=== PATIENT | female | born 1950 | race Caucasian/White ===

== ENCOUNTER 2016-07-22 11:36 | Day surgery (SDC) | payer MEDICARE, OTHER ==
[~2016-07-22] VITALS: Ht 157.5 cm; Wt 63.5 kg
[~2016-07-22 11:36] MED LIST: 0.9% Sodium Chloride 1,000 ML IV PRN; AMLO5TAB2 PO; ASPI-973 PO; ATOR80TA PO; CALC0.257 PO; PRD5T PO; SULF1TAB34 PO; Sodium Chloride LOK Flush 10 mL Syringe IV PRN; TACR0.5C5 PO; fentaNYL-PF 50 mCg/mL 2 mL Inj IVPUSH PRN
[2016-07-22 12:15] VITALS: BP 158/72; PULSE 77; RESP 16; O2SAT 98
[2016-07-22] MEDS ORDERED: INSU100I18 SUBQ (12:44)
[2016-07-22] MEDS ORDERED: LEVO88TA28 PO (12:44)
[2016-07-22] MEDS ORDERED: CARV12.5 PO (12:44)
[2016-07-22] MEDS ORDERED: MTC5T PO (12:44)
[2016-07-22] MEDS ORDERED: INSU100I13 SUBQ (12:44)
[2016-07-22] MEDS ORDERED: FURO-129 PO (12:44)
[2016-07-22 14:08] VITALS: BP 146/68; PULSE 73; RESP 16; O2SAT 95
[2016-07-22 14:18] VITALS: BP 164/83; PULSE 76; RESP 16; O2SAT 95
--- NOTE | 2016-07-22 14:52 | PCM.ENDCOL ---
Colonoscopy Physician Gordon Forbes MD Pre Procedure Diagnosis: Screening Post Procedure Dx & Findings: Polyp hemorrhoids colitis diverticuli Procedure Colonoscopy PROCEDURE IN DETAIL: Prep poor Withdrawal time 11 minutes After unremarkable rectal examination the Olympus video colonoscope was inserted patient's anal canal and was advanced to cecum. Landmarks were identified including the ileocecal valve and appendiceal orifice. Scope was withdrawn systematically. Visualized colonic mucosa showed healthy shiny mucosa with normal healthy-appearing vasculature. In the cecum, there was a 1 mm polyp was removed completely using cold forceps. In the transverse colon, there was a polyp 1 cm x 3 mm which was removed by cold snare. 2 hemostatic clips deployed. In the sigmoid colon there were both diverticuli medium-sized. In the distal rectum, there was evidence of redness edema consistent with mild colitis. Biopsies obtained. In the rectum retroflexion was done which showed hemorrhoids. Anal canal was inspected carefully on the way out and hemorrhoids noted. Impression Polyps 2 status post complete removal Hemorrhoids Poor prep Diverticuli Recommendation Repeat colonoscopy 1 year with a 2 day prep Diverticular diet Presedation Assessment Risks and Benefits Informed consent was obtained from the patient after all risks and benefits including but not limited to drug reaction, infection, pain, bleeding, perforation, as well as alternatives were discussed. Patient monitoring Continuous pulse oximetry, cardiac monitoring, blood pressure monitoring, IV access, and oxygen at 2L per nasal cannula. Periprocedural Fentanyl: Fentanyl 100mcg Incrementally Midazolam: Midazolam 4mg Incrementally Complications There were no periprocedural complications identified. Post Procedure Plan Post Procedure Recommendations 1. Restrict activities today. 2. Resume normal activities in the morning. 3. Resume medications. 4. Patient informed of normal post procedure side effects as bloating, drowsiness, blood streaking in the stool. 5. average risk CRCS. If colon polyps come back as: -Hyperplastic- can repeat colonoscopy in 10 years -Tubular adenoma- repeat colonoscopy in 5 years -Tubulovillous/villous adenoma- repeat colonoscopy in 3 years -If any dysplasia- return to clinic as soon as possible 6. Please don't hesitate to call me with any questions. Gordon Forbes MD Jul 22, 2016 14:52
--- NOTE | 2016-07-24 14:21 | PATH ---
SURGICAL PATHOLOGY Attending Physician:Gordon Forbes M.D. CASE STATUS: Signed Out PATIENT NAME: EMBER MADDEN PID: [id number] : 1950 DATE COLLECTED:07/22/2016 00:00 SPECIMEN: 1: Colon, Biopsy 2: Colon, Biopsy 3: Colon, Biopsy CLINICAL HISTORY: 1). CECAL POLYP X1 2). TRANSVERSE POLYP 3). DISTAL COLITIS BIOPSY FINAL DIAGNOSIS: 1.CECAL POLYP: TUBULAR ADENOMA. 2.TRANSVERSE POLYP: SESSILE SERRATED ADENOMA. 3.DISTAL COLITIS BIOPSY: COLONIC MUCOSA WITH MILD REACTIVE CHANGES. NEGATIVE FOR INFLAMMATION, DYSPLASIA AND MALIGNANCY. ICD10 CODE D12.0 D12.3 GROSS DESCRIPTION: The specimen is received in three formalin filled containers labeled with the patient's name. 1). The specimen is sublabeled "cecal polyp and consists of a 0.2 x 0.2 x 0.2 CM portion of tissue which is entirely submitted in cassette 1A. 2). The specimen is sublabeled "transverse polyp" and consists of a 0.6 x 0.4 x 0.3 CM portion of tissue which is entirely submitted in cassette 2A. 3). The specimen is sublabeled "distal colitis" and consists of a 0.3 x 0.2 x 0.2 CM portion of tissue which is entirely submitted in cassette 3A. 07/23/2016 DAC MICRO DESCRIPTION: See diagnosis. ICD-9 CODES: CPT CODES: 1: 49343 2: 69256 3: 19387 Electronically Signed Out Kay Patricio MD [facility] Pathology [facility] [place] [address] Technical component performed at [facility], [facility] [address], [place], [address]
== END 2016-07-22 23:59 | disposition home or self-care (01) ==
LOC: END 11:36
PROVIDERS: ATTEND Internal Medicine
DX: Z12.11 Encounter for screening for malignant neoplasm of colon (principal); D12.0 Benign neoplasm of cecum; D12.3 Benign neoplasm of transverse colon; K57.30 Diverticulosis of large intestine without perforation or abscess without bleeding; K64.8 Other hemorrhoids; E11.9 Type 2 diabetes mellitus without complications; Z80.0 Family history of malignant neoplasm of digestive organs; Z79.82 Long term (current) use of aspirin; Z79.4 Long term (current) use of insulin; Z79.899 Other long term (current) drug therapy